=== PATIENT | male | born 1980 | race American Indian/Alaskan Native ===

== ENCOUNTER 2019-01-16 10:53 | Emergency (ER) | payer SELFPAY ==
[2019-01-16] MEDS ORDERED: DULCOLAX PR ONE (11:21)
--- NOTE | 2019-01-16 11:23 | Event Note ---
ED Screening Note ED Screening Note: pt has hemorrhoid he needs educated he is constipated does not know what fiber is no bleeding This initial assessment/diagnostic orders/clinical plan/treatment(s) is/are subject to change based on patients health status, clinical progression and re- assessment by fellow clinical providers in the ED. Further treatment and workup at subsequent clinical providers discretion. Patient/guardian urged not to elope from the ED as their condition may be serious if not clinically assessed and managed. Initial orders include: NM sup education
--- NOTE | 2019-01-16 13:29 | Emergency Department Report ---
ED General Adult HPI - General Chief complaint: Rectal Pain Stated complaint: HEMORRHOIDS Time Seen by Provider: 01/16/19 11:18 Source: patient Mode of arrival: Ambulatory Limitations: No Limitations - History of Present Illness Initial comments: This is a 38-year-old male nontoxic, well nourished in appearance, no acute signs of distress presents to the ED with c/o of rectal pain with history of hemorrhoids. Patient denies any rectal bleeding. Patient stated he has been constipated. Patient denies any abdominal pain, nausea, vomiting, chest pain, shortness of breath, headache, stiff neck, numbness or tingling. Patient denies any fever or chills. Denies any allergies or significant past medical history. MD Complaint: rectal hemorrhoids -: days(s) Radiation: non-radiation Severity scale (0 -10): 7 Quality: aching Consistency: constant Improves with: none Worsens with: none Associated Symptoms: denies other symptoms. denies: confusion, chest pain, cough, diaphoresis, fever/chills, headaches, loss of appetite, malaise, nausea/vomiting, rash, seizure, shortness of breath, syncope, weakness - Related Data Previous Rx's Medication Instructions Recorded Last Taken Type Docusate Sodium [Colace] 100 mg PO BID PRN #20 capsule 01/16/19 Unknown Rx PE/Mo/Pet,Wh [Preparation H] 28 gm NV BID #1 tube 01/16/19 Unknown Rx Allergies Allergy/AdvReac Type Severity Reaction Status Date / Time No Known Allergies Allergy Verified 01/16/19 11:18 ED Review of Systems ROS: Stated complaint: HEMORRHOIDS Other details as noted in HPI Constitutional: denies: chills, fever Eyes: denies: eye pain, eye discharge, vision change ENT: denies: ear pain, throat pain Respiratory: denies: cough, shortness of breath, wheezing Cardiovascular: denies: chest pain, palpitations Endocrine: no symptoms reported Gastrointestinal: constipation. denies: abdominal pain, nausea, diarrhea Genitourinary: denies: urgency, dysuria Musculoskeletal: denies: back pain, joint swelling, arthralgia Skin: denies: rash, lesions Neurological: denies: headache, weakness, paresthesias Psychiatric: denies: anxiety, depression Hematological/Lymphatic: denies: easy bleeding, easy bruising ED Past Medical Hx - Past Medical History Previous Medical History?: No - Surgical History Past Surgical History?: No - Social History Smoking Status: Never Smoker Substance Use Type: None - Medications Home Medications: Home Medications Medication Instructions Recorded Confirmed Last Taken Type Docusate Sodium [Colace] 100 mg PO BID PRN #20 capsule 01/16/19 Unknown Rx PE/Mo/Pet,Wh [Preparation H] 28 gm NV BID #1 tube 01/16/19 Unknown Rx ED Physical Exam - General Limitations: No Limitations General appearance: alert, in no apparent distress - Head Head exam: Present: atraumatic, normocephalic - GI/Abdominal GI/Abdominal exam: Present: soft, normal bowel sounds. Absent: distended, tenderness, guarding, rebound, rigid, diminished bowel sounds - Rectal Rectal exam: Present: normal inspection, normal rectal tone, hemorrhoids (external that are reducible. 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 Absent: decreased rectal tone, heme (+) stool, black stool, bloody stool, fecal impaction, mass - Extremities Exam Extremities exam: Present: normal inspection, full ROM. Absent: tenderness - Back Exam Back exam: Present: normal inspection, full ROM - Neurological Exam Neurological exam: Present: alert, oriented X3, normal gait - Psychiatric Psychiatric exam: Present: normal affect, normal mood - Skin Skin exam: Present: warm, dry, intact, normal color. Absent: rash ED Course Vital Signs 01/16/19 11:18 Temperature 97.6 F Pulse Rate 102 H Respiratory 20 Rate Blood Pressure 119/77 [Right] O2 Sat by Pulse 97 Oximetry - Reevaluation(s) Reevaluation #1: 01/16/19 13:26 Patient is speaking in full sentences with no signs of distress noted. ED Medical Decision Making - Medical Decision Making This is a 38-year-old male that presents with hemorrhoids. Patient is febrile and was examined by me. Patient was educated on sitz baths. Patient was also educated on constipation prevention such as diet. Patient was instructed to Follow-up with a primary care doctor in 3-5 days or if symptoms worsen and continue return to emergency room as soon as possible. At time of discharge, the patient does not seem toxic or ill in appearance. No acute signs of distress noted. Patient agrees to discharge treatment plan of care. No further questions noted by the patient. Critical care attestation.: If time is entered above; I have spent that time in minutes in the direct care of this critically ill patient, excluding procedure time. ED Disposition Clinical Impression: Hemorrhoids Qualifiers: Hemorrhoid type: unspecified Qualified Code(s): K64.9 - Unspecified hemorrhoids Disposition: TO HOME OR SELFCARE Is pt being admited?: No Does the pt Need Aspirin: No Condition: Stable Instructions: Hemorrhoids (ED), Sitz Bath (GEN), High Fiber Diet (ED), Constipation (ED) Additional Instructions: Follow-up with a primary care doctor in 3-5 days or if symptoms worsen and continue return to emergency room as soon as possible. Prescriptions: Docusate Sodium [Colace] 100 mg PO BID PRN #20 capsule PRN Reason: Constipation PE/Mo/Pet,Wh [Preparation H] 28 gm NV BID #1 tube Referrals: [facility] MD DORYS [Primary Care Provider] - 3-5 Days PRIMARY CAREMD [Referring] - 3-5 Days KELLY FUNK MD [Staff Physician] - 3-5 Days [facility] [Outside] - 3-5 Days [facility] [Outside] - 3-5 Days Forms: Work/School Release Form(ED)
[2019-01-16 13:45] VITALS: BP 118/74
== END 2019-01-16 13:43 | disposition home or self-care (01) ==
LOC: ED 10:53
DX: K64.9 Unspecified hemorrhoids (principal)